=== PATIENT | female | born 1990 | race Caucasian/White ===

== ENCOUNTER 2021-07-09 14:25 | Emergency (ER) | payer OTHER ==
[~2021-07-09] VITALS: Ht 165.1 cm; Wt 83.9 kg
[~2021-07-09 14:25] MED LIST: DOCUSATE SODIU100 MG PO; LEVSIN0.125 MG PO; NAPR500T14 PO; OMEPRAZOLE; OMEPRAZOLE40 MG PO; PRENATE ADVANCE PO; TOBREX 0.30.15 MG/DR OP; ZANTAC150 M3 PO; ZANTAC150 MG PO; [UNRECOGNIZED DRUG - OTHER] OP
[2021-07-09] MEDS ORDERED: PRENA1 CHEW TA1.4 MG (15:09)
== END 2021-07-09 17:59 | disposition home or self-care (01) ==
LOC: ER 14:25
DX: R51.9 Headache, unspecified (principal); O26.892 Other specified pregnancy related conditions, second trimester; Z3A.15 15 weeks gestation of pregnancy

== ENCOUNTER → 2021-08-13 | Emergency (ER) | payer OTHER ==
[~2021-08-13] VITALS: Ht 165.1 cm; Wt 83.9 kg
[~2021-08-13] MED LIST changes: +PRENA1 CHEW TA1.4 MG
== END | disposition home or self-care (01) ==
LOC: ER 22:21
DX: U07.1 COVID-19 (principal); Z3A.20 20 weeks gestation of pregnancy

== ENCOUNTER 2021-09-27 19:04 | Emergency (ER) | payer OTHER ==
[~2021-09-27] VITALS: Ht 165.1 cm; Wt 90.3 kg
== END 2021-09-27 22:40 | disposition home or self-care (01) ==
LOC: ER 19:04
DX: Z34.92 Encounter for supervision of normal pregnancy, unspecified, second trimester (principal); R05.9 Cough, unspecified; M54.50 Low back pain, unspecified

== ENCOUNTER 2021-12-17 12:30 | Inpatient (IN) | payer OTHER ==
[~2021-12-17] VITALS: Ht 165.1 cm; Wt 92.5 kg
[2021-12-25] MEDS ORDERED: ATABEX OB TABL1 EACH (08:46)
== END 2021-12-26 13:43 | disposition home or self-care (01) | DRG 807 ==
LOC: LDR 12-24 05:46 → SURG-SUITE 12-24 05:46 → OB/GYN 12-24 12:30 → SURG-SUITE 12-26 13:43
PROVIDERS: ADMIT Obstetrics & Gynecology; ATTEND Obstetrics & Gynecology
PROC: 10E0XZZ Delivery of Products of Conception, External Approach (ICD-10-PCS; principal; 2021-12-24)
PROC: 4A1HXCZ Monitoring of Products of Conception, Cardiac Rate, External Approach (ICD-10-PCS; 2021-12-24)
DX: O80 Encounter for full-term uncomplicated delivery (principal); Z37.0 Single live birth; Z20.822 Contact with and (suspected) exposure to COVID-19; Z3A.39 39 weeks gestation of pregnancy